=== PATIENT | male | born 2000 | race Caucasian/White ===

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

== ENCOUNTER 2019-07-02 15:25 | Emergency (ER) | payer BC, OTHER ==
[2019-07-02 15:39] VITALS: BP 141/80
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
== END 2019-07-02 16:46 | disposition home or self-care (01) ==
LOC: UCCORT 15:25
DX: J20.9 Acute bronchitis, unspecified (principal)
CPT/HCPCS: 99212; G0463